=== PATIENT | female | born 1945 | race Caucasian/White ===

== ENCOUNTER → 2016-05-30 | Outpatient (CLI) | payer BC ==
[~2016-05-30] MED LIST: LUMIGAN 0.50 DROP/22 BOTH EYES; VITAMIN D2000 UNIT PO
== END | disposition home or self-care (01) ==
LOC: CDC 10:20
DX: Z01.810 Encounter for preprocedural cardiovascular examination (principal); N64.52 Nipple discharge
CPT/HCPCS: 93000

== ENCOUNTER 2016-06-20 12:02 | Day surgery (SDC) | payer BC, OTHER ==
[~2016-06-20] VITALS: Ht 160 cm; Wt 89.8 kg
[2016-06-20 12:31] VITALS: BP 185/85
[2016-06-20 15:33] VITALS: BP 139/67
[2016-06-20 16:34] VITALS: BP 140/79
== END 2016-06-20 16:49 | disposition home or self-care (01) ==
LOC: SDC 12:02
DX: D24.1 Benign neoplasm of right breast (principal); N60.11 Diffuse cystic mastopathy of right breast; E11.9 Type 2 diabetes mellitus without complications; H40.9 Unspecified glaucoma; I10 Essential (primary) hypertension; E78.5 Hyperlipidemia, unspecified; E66.9 Obesity, unspecified; Z68.37 Body mass index [BMI] 37.0-37.9, adult; M81.0 Age-related osteoporosis without current pathological fracture; E55.9 Vitamin D deficiency, unspecified; Z82.3 Family history of stroke; Z82.49 Family history of ischemic heart disease and other diseases of the circulatory system; Z82.5 Family history of asthma and other chronic lower respiratory diseases; Z88.1 Allergy status to other antibiotic agents; Z88.2 Allergy status to sulfonamides
CPT/HCPCS: 88305; 88307; J0131; J0690; J1100; J2250; J2405; J2765; J3010; S0020

== ENCOUNTER 2016-10-27 18:49 | Inpatient (IN) | payer BC, OTHER ==
[~2016-10-27] VITALS: Ht 157.5 cm; Wt 92.2 kg
[2016-10-27 20:27] LABS: HEMATOCRIT 40.4 % (36.0-46.0); MCH 29.2 PG (29.0-34.0); MCHC 33.4 G/DL (30.0-36.0); MCV 87.4 FL (83-99); PLATELET COUNT 263 K/uL (156-360); RBC DIS.WIDTH-SD 44.9 % (39-53); RED BLOOD COUNT 4.62 M/uL (3.80-5.20)
[2016-10-27 20:58] LABS: GLUCOSE 211 mg/dL (70-99)
[2016-10-27 21:00] LABS: ANION GAP 12 MEQ/L (2-14); TOTAL BILIRUBIN 0.4 mg/dL (0.0-1.0)
[2016-10-27 21:02] LABS: GFR ESTIMATE (CALCULATED) > 59 mL/min/
[2016-10-27 21:03] LABS: UREA NITROGEN (BUN) 14 mg/dL (9-23)
[2016-10-27 21:05] LABS: LIPASE 6 U/L (1.0-51.0)
[2016-10-27 21:07] LABS: TROP-I INTERPRETATION NEGATIVE; TROPONIN-I < 0.01 ng/mL (0.0-0.30)
[2016-10-27 21:23] LABS: CHLORIDE 104 mEq/L (99-109); POTASSIUM 3.8 mEq/L (3.7-5.4); SODIUM 137 mEq/L (136-147)
[2016-10-27 22:39] LABS: ALKALINE PHOSPHATASE 76 IU/L (3-129)
[2016-10-28] VITALS (25 sets, daily range): BP systolic 98–186; BP diastolic 50–94
[2016-10-28 02:28] LABS: METH RESISTANT S AUREUS PCR NEGATIVE (NEGATIVE)
[2016-10-28 02:43] LABS: PROBE CHECK PASS; SPECIMEN PROCESSING CONTROL PASS
[2016-10-28 05:44] LABS: HEMATOCRIT 35.6 % (36.0-46.0); MCH 30.3 PG (29.0-34.0); MCV 89.2 FL (83-99); MEAN PLAT.VOLUME 10.6 uM^3 (9.5-12.4); PLATELET COUNT 235 K/uL (156-360); RBC DIS.WIDTH-CV 14.1 % (11.8-14.6); RBC DIS.WIDTH-SD 45.2 % (39-53); RED BLOOD COUNT 3.99 M/uL (3.80-5.20); WHITE BLOOD COUNT 13.2 K/uL (4.1-10.2)
[2016-10-28 06:47] LABS: ANION GAP 8 MEQ/L (2-14); CHLORIDE 104 MEQ/L (99-109); GFR ESTIMATE (CALCULATED) > 59 mL/min/; GLUCOSE 146 mg/dL (70-99); POTASSIUM 3.7 MEQ/L (3.7-5.4); SAMPLE HEMOLYSIS CHECK 0; SAMPLE ICTERIC CHECK 0; SAMPLE LIPEMIA CHECK 0; SODIUM 137 MEQ/L (136-147); UREA NITROGEN (BUN) 13 mg/dL (9-23)
[2016-10-28 08:00] LABS: Estimated Average Glucose 163 mg/dL (70-123); HEMOGLOBIN A1c (GLYCOHEMOGLOB) 7.3 % HGB (Below 5.7)
[2016-10-29 00:06] VITALS: BP 156/72
[2016-10-29 01:44] LABS: PROTHROMBIN TIME 9.9 (9.2-11.2); PTT 27.3 (25-32)
[2016-10-29 03:25] VITALS: BP 133/70
[2016-10-29 08:59] VITALS: BP 155/86
[2016-10-29 11:02] VITALS: BP 149/87
[2016-10-29] MEDS ORDERED: LABETALOL HCL100 MG PO (13:19)
== END 2016-10-29 15:26 | disposition home or self-care (01) | DRG 66 ==
LOC: EME 18:49 → RME 18:49 → EDOF 23:02 → 5SOUTH 23:02 → 4WEST 23:02 → 5SOUTH 10-28 19:50
PROVIDERS: Anesthesiology; Nurse Practitioner Family
DX: I61.5 Nontraumatic intracerebral hemorrhage, intraventricular (principal); I67.1 Cerebral aneurysm, nonruptured; I10 Essential (primary) hypertension; R00.0 Tachycardia, unspecified; E11.9 Type 2 diabetes mellitus without complications; H40.9 Unspecified glaucoma; J30.2 Other seasonal allergic rhinitis; Z88.1 Allergy status to other antibiotic agents; Z88.2 Allergy status to sulfonamides; Z82.3 Family history of stroke; Z82.49 Family history of ischemic heart disease and other diseases of the circulatory system
CPT/HCPCS: 70450; 70496; 70498; 71020; 80048; 80053; 83036; 83690; 84484; 85027; 85610; 85730; 87641; 92610 GN; 93005; 93880; 99281; 99285; J1885; J2405; J7030

== ENCOUNTER 2016-12-03 09:19 | Observation (INO) | payer BC, OTHER ==
[~2016-12-03] VITALS: Ht 157.5 cm; Wt 88.3 kg
[~2016-12-03 09:19] MED LIST changes: +LABETALOL HCL100 MG PO
[2016-12-03 10:03] LABS: HEMATOCRIT 40.8 % (36.0-46.0); MCH 29.1 PG (29.0-34.0); MCHC 33.6 G/DL (30.0-36.0); MCV 86.6 FL (83-99); MEAN PLAT.VOLUME 10.8 uM^3 (9.5-12.4); PLATELET COUNT 243 K/uL (156-360); RBC DIS.WIDTH-CV 13.8 % (11.8-14.6); RBC DIS.WIDTH-SD 43.6 % (39-53); RED BLOOD COUNT 4.71 M/uL (3.80-5.20); WHITE BLOOD COUNT 9.4 K/uL (4.1-10.2)
[2016-12-03 10:12] LABS: CHLORIDE 104 mEq/L (99-109); POTASSIUM 3.5 mEq/L (3.7-5.4); SODIUM 139 mEq/L (136-147)
[2016-12-03 10:15] LABS: GLUCOSE 149 mg/dL (70-99)
[2016-12-03 10:16] LABS: ANION GAP 14 MEQ/L (2-14)
[2016-12-03 10:17] LABS: TOTAL BILIRUBIN 0.6 mg/dL (0.0-1.0)
[2016-12-03 10:18] LABS: ALKALINE PHOSPHATASE 86 IU/L (3-129); GFR ESTIMATE (CALCULATED) > 59 mL/min/
[2016-12-03 10:19] LABS: UREA NITROGEN (BUN) 17 mg/dL (9-23)
[2016-12-03] MEDS ORDERED: LOSARTAN POTASS25 MG PO (13:05)
[2016-12-03 13:45] VITALS: BP 163/74; BP 168/75
[2016-12-03 13:46] VITALS: BP 165/74
[2016-12-03 16:01] VITALS: BP 140/74
[2016-12-03 20:00] VITALS: BP 131/63; BP 135/70; BP 138/63
[2016-12-04] VITALS: BP 143/64
[2016-12-04 03:59] VITALS: BP 124/59
[2016-12-04] MEDS ORDERED: ANTIVERT25 MG PO (09:09)
[2016-12-04 11:00] VITALS: BP 139/72
[2016-12-05 07:27] LABS: Estimated Average Glucose 160 mg/dL (70-123); HEMOGLOBIN A1c (GLYCOHEMOGLOB) 7.2 % HGB (Below 5.7)
== END 2016-12-04 11:25 | disposition home or self-care (01) ==
LOC: EME 09:19 → EDOF 11:25 → 5WEST 13:12
PROVIDERS: Hospitalist; Nurse Practitioner Family
DX: R42 Dizziness and giddiness (principal); I10 Essential (primary) hypertension; G93.89 Other specified disorders of brain; Z86.73 Personal history of transient ischemic attack (TIA), and cerebral infarction without residual deficits; R07.9 Chest pain, unspecified; J30.9 Allergic rhinitis, unspecified; Z88.2 Allergy status to sulfonamides; Z88.1 Allergy status to other antibiotic agents
CPT/HCPCS: 70450; 70551; 71010; 80053; 83036; 85027; 85610; 85730; 93005; 99281; 99285; G0378; J7030